=== PATIENT | male | born 1960 | race Caucasian/White ===

== ENCOUNTER 2022-10-01 05:45 | Day surgery (SDC) | payer MEDICAID ==
[~2022-10-01] VITALS: Ht 170.2 cm; Wt 81.6 kg
[~2022-10-01 05:45] MED LIST: LACT10SO6 PO; RIFA550T5 PO
[2022-10-01] MEDS ORDERED: SIMETHICONE 40 MG/0.6 ML ML ONE (07:10)
[2022-10-01] MEDS ORDERED: MEPERIDINE HCL/PF 25 MG/ML DISP.SYRIN ONE (07:12)
[2022-10-01] MEDS ORDERED: MEPERIDINE HCL/PF 25 MG/ML DISP.SYRIN IVP ONE ×2 (07:41→07:44)
[2022-10-01] MEDS: MIDAZOLAM HCL 5 MG/5 ML VIAL ONE ×2 (07:41→07:44)
[2022-10-01 11:13] VITALS: BP_SYST 121
== END 2022-10-01 08:45 | disposition home or self-care (01) ==
LOC: SMU 05:45 → SDS 05:45
PROVIDERS: ATTEND Internal Medicine Gastroenterology
DX: K70.30 Alcoholic cirrhosis of liver without ascites (principal); K25.9 Gastric ulcer, unspecified as acute or chronic, without hemorrhage or perforation; K29.50 Unspecified chronic gastritis without bleeding; F41.9 Anxiety disorder, unspecified; M19.90 Unspecified osteoarthritis, unspecified site; F32.A Depression, unspecified; K21.9 Gastro-esophageal reflux disease without esophagitis; F17.210 Nicotine dependence, cigarettes, uncomplicated; Z20.822 Contact with and (suspected) exposure to COVID-19; Z79.899 Other long term (current) drug therapy
CPT/HCPCS: 36415 ×2; 43239; 87426; 87081; 88305; 88312; 88313; 99152; U0003; G0378; J2250; J2175

== ENCOUNTER 2024-02-02 05:40 | Day surgery (SDC) | payer MEDICAID, OTHER ==
[~2024-02-02] VITALS: Ht 175.3 cm; Wt 93.0 kg
[2024-02-02] MEDS ORDERED: MIDAZOLAM HCL 5 MG/5 ML VIAL ONE (07:23)
[2024-02-02] MEDS ORDERED: fentaNYL CITRATE/PF 100 MCG/2 ML AMP ONE (07:23)
[2024-02-02] MEDS ORDERED: MEPERIDINE 100 MG INJ. 100 MG/ML VIAL ONE (07:23)
[2024-02-02 08:34] VITALS: O2SAT 96
[2024-02-02 14:04] VITALS: BP_SYST 196; PULSE 82; RESP 18
== END 2024-02-02 09:05 | disposition home or self-care (01) ==
LOC: SMU 05:40 → SDS 05:40
PROVIDERS: ATTEND Internal Medicine Gastroenterology
DX: K70.30 Alcoholic cirrhosis of liver without ascites (principal); K29.50 Unspecified chronic gastritis without bleeding; K31.A0 Gastric intestinal metaplasia, unspecified; K25.9 Gastric ulcer, unspecified as acute or chronic, without hemorrhage or perforation; I10 Essential (primary) hypertension; K21.9 Gastro-esophageal reflux disease without esophagitis; F41.9 Anxiety disorder, unspecified; F32.A Depression, unspecified; F17.210 Nicotine dependence, cigarettes, uncomplicated; Z98.890 Other specified postprocedural states; Z79.899 Other long term (current) drug therapy
CPT/HCPCS: 43239; 87081; 36415; 88305; 88312; 88313; G0378; J2250; J2175; J3010